=== PATIENT | female | born 1970 ===

== ENCOUNTER 2021-01-25 11:29 | Outpatient (REF) | payer BC, SELFPAY ==
[2021-01-25 14:45] LABS: Bilirubin Negative (Negative); Blood Negative (Negative); Clarity Clear (Clear); Glucose Negative (Negative); Ketones Negative (Negative); Leukocyte Esterase Negative (Negative); Nitrite Negative (Negative); Urobilinogen 0.2 EU/dL (Up TO 0.2); pH 5.5 (5-8)
== END 2021-01-25 11:30 | disposition home or self-care (01) ==
LOC: LBN 11:29
PROVIDERS: Nurse Practitioner Family; Visit Provider Student in an Organized Health Care Education/Training Program
DX: R35.0 Frequency of micturition (principal)
CPT/HCPCS: 81003